=== PATIENT | female | born 1940 | race Caucasian/White ===

== ENCOUNTER 2021-09-29 18:56 | Emergency (ER) | payer MEDICARE, OTHER ==
[~2021-09-29] VITALS: Ht 167.6 cm; Wt 68.2 kg
[2021-09-29 20:09] LABS: BASOPHILS # (AUTO) 0.1 X10'3 (0-0.2); BASOPHILS % (AUTO) 0.8 % (0-1); EOSINOPHILS # (AUTO) 0.3 X10'3 (0-0.9); EOSINOPHILS % (AUTO) 1.9 % (0-6); HEMATOCRIT 42.5 % (35.0-45.0); HEMOGLOBIN 14.2 g/dl (12.0-16.0); LYMPHOCYTES # (AUTO) 2.1 X10'3 (1.1-4.8); LYMPHOCYTES % (AUTO) 11.9 % (21-51); MEAN CORPUSCULAR HEMOGLOBIN 27.9 PG (27.0-31.0); MEAN CORPUSCULAR HGB CONC 33.5 g/dL (33.0-36.5); MEAN CORPUSCULAR VOLUME 83.4 FL (78-98); MEAN PLATELET VOLUME 7.9 FL (7.4-10.4); MONOCYTES # (AUTO) 1.1 X10'3 (0-0.9); MONOCYTES % (AUTO) 6.1 % (2-12); NEUTROPHILS # (AUTO) 13.8 X10'3 (1.8-7.7); NEUTROPHILS % (AUTO) 79.3 % (42-75); PLATELET COUNT 343 X10'3 (140-440); RED CELL DISTRIBUTION WIDTH 14.5 % (11.5-14.5); WHITE BLOOD COUNT 17.4 X10'3 (4.5-11.0)
[2021-09-29 20:29] LABS: ALANINE AMINOTRANSFERASE 27 U/L (12-78); ALBUMIN 3.4 G/DL (3.4-5.0); ALBUMIN/GLOBULIN RATIO 0.7 (1.1-1.5); ALKALINE PHOSPHATASE 114 IU/L (46-116); ANION GAP 8 (8-16); ASPARTATE AMINO TRANSFERASE 34 U/L (10-37); BILIRUBIN,TOTAL 0.6 MG/DL (0.1-1.0); BLOOD UREA NITROGEN 15 MG/DL (7-18); BUN/CREATININE RATIO 15.6 (6.6-38.0); CALCIUM 8.6 MG/DL (8.5-10.1); CHLORIDE 100 MMOL/L (99-107); CREATININE 0.96 MG/DL (0.40-0.90); GLUCOSE 107 MG/DL (70-104); POTASSIUM 3.3 MMOL/L (3.5-5.1); SODIUM 136 MMOL/L (135-145); TOTAL PROTEIN 8.2 G/DL (6.4-8.2); eGFR 56 ML/MIN
[2021-09-29] MEDS ORDERED: MULT-1085 PO (20:31)
[2021-09-29] MEDS ORDERED: METH1TAB29 PO (20:31)
[2021-09-29] MEDS ORDERED: LOSA25TA96 PO (20:31)
[2021-09-29] MEDS ORDERED: CYAN50003 PO (20:31)
[2021-09-29] MEDS ORDERED: CHOL200012 PO (20:31)
[2021-09-29] MEDS ORDERED: PANT40TA54 PO (20:31)
[2021-09-29] MEDS ORDERED: PRAM0.5T3 PO (20:31)
[2021-09-29] MEDS ORDERED: OSC500T PO (20:31)
[2021-09-29] MEDS ORDERED: MELO-102 PO (20:31)
[2021-09-29] MEDS ORDERED: SIMV-42 PO (20:31)
[2021-09-29] MEDS ORDERED: albuterol 2.5 MG/3 ML nebule NEB ONE (21:05)
[2021-09-29] MEDS ORDERED: levoFLOXACIN 250mg tablet PO ONE (21:25)
[2021-09-29] MEDS ORDERED: PRED20TA PO (21:32)
[2021-09-29] MEDS ORDERED: LEVO500T90 PO (21:32)
[2021-09-29] MEDS ORDERED: predniSONE 20 mg tablet PO ONE (21:35)
[2021-09-29 22:13] VITALS: BP 155/70
[2021-09-29] MEDS ORDERED: ALBU18HF2 INH (22:22)
== END 2021-09-29 22:16 | disposition home or self-care (01) ==
LOC: ER 18:57
DX: J18.9 Pneumonia, unspecified organism (principal); Z20.822 Contact with and (suspected) exposure to COVID-19; J44.1 Chronic obstructive pulmonary disease with (acute) exacerbation; R09.89 Other specified symptoms and signs involving the circulatory and respiratory systems; R05.9 Cough, unspecified; R50.9 Fever, unspecified; Z88.1 Allergy status to other antibiotic agents; Z79.2 Long term (current) use of antibiotics; Z79.899 Other long term (current) drug therapy
CPT/HCPCS: 36415; 71045; 80053; 85025; 87502; 87503; 87635; 94640; 99284; C9803; J7512; 94760

== ENCOUNTER 2022-03-24 19:49 | Inpatient (IN) | payer MEDICARE, OTHER ==
[~2022-03-24] VITALS: Ht 167.6 cm; Wt 62.7 kg
[~2022-03-24 19:49] MED LIST: ALBU18HF2 INH; CHOL200012 PO; CYAN50003 PO; LOSA25TA96 PO; MELO-102 PO; METH1TAB29 PO; MULT-1085 PO; OSC500T PO; PANT40TA54 PO; PRAM0.5T3 PO; SIMV-42 PO
[2022-03-24 21:07] LABS: CLARITY,URINE SLIGHTLY CLOUDY (Clear); COLOR,URINE YELLOW (Yellow); GLUCOSE, URINE NEGATIVE (Neg); KETONES,URINE NEGATIVE (Neg); LEUKOCYTE ESTERASE ,URINE MODERATE (Neg); NITRITES, URINE POSITIVE (Neg); OCCULT BLOOD,URINE SMALL (Neg); PROTEIN,URINE 30 mg/dl (Neg); UROBILINOGEN,URINE 0.2 E.U/dL (0.2-1.0)
[2022-03-24 21:11] LABS: UA COLLECTION TYPE CLN CATCH MIDSTREAM
[2022-03-24 21:15] LABS: BACTERIA,URINE 3+ /HPF (Neg); MUCUS STRANDS FEW /LPF (Neg); SQUAMOUS EPITHELIAL CELL,UR FEW /LPF (FEW); WBC,URINE TNTC /HPF (0-4)
[2022-03-24 21:16] LABS: WBC CLUMPS,URINE FEW /HPF (NEGATIVE)
--- NOTE | 2022-03-25 00:01 | NUR ---
CHEST XRAY DONE
[2022-03-25] MEDS ORDERED: CefTRIAXone 1000mg IM Kit (w/lidocaine diluent) IM ONE (00:10)
[2022-03-25] MEDS ORDERED: CefTRIAXone/D5W-Rocephin 1gm 50 ML IV ONE (00:20)
[2022-03-25 00:51] LABS: BASOPHILS # (AUTO) 0.1 X10'3 (0-0.2); BASOPHILS % (AUTO) 0.6 % (0-1); EOSINOPHILS % (AUTO) 0.1 % (0-6); HEMATOCRIT 37.4 % (35.0-45.0); HEMOGLOBIN 12.4 g/dl (12.0-16.0); LYMPHOCYTES # (AUTO) 1.3 X10'3 (1.1-4.8); LYMPHOCYTES % (AUTO) 6.1 % (21-51); MEAN CORPUSCULAR HEMOGLOBIN 28.5 PG (27.0-31.0); MEAN CORPUSCULAR HGB CONC 33.2 g/dL (33.0-36.5); MEAN CORPUSCULAR VOLUME 85.9 FL (78-98); MONOCYTES # (AUTO) 1.7 X10'3 (0-0.9); MONOCYTES % (AUTO) 8.3 % (2-12); NEUTROPHILS # (AUTO) 17.6 X10'3 (1.8-7.7); NEUTROPHILS % (AUTO) 84.9 % (42-75); PLATELET COUNT 253 X10'3 (140-440); RED BLOOD COUNT 4.35 X10'6 (4.20-5.60); RED CELL DISTRIBUTION WIDTH 15.8 % (11.5-14.5); WHITE BLOOD COUNT 20.7 X10'3 (4.5-11.0)
[2022-03-25 01:06] LABS: ALANINE AMINOTRANSFERASE 31 U/L (12-78); ALBUMIN 3.1 G/DL (3.4-5.0); ALBUMIN/GLOBULIN RATIO 0.7 (1.1-1.5); ALKALINE PHOSPHATASE 85 IU/L (46-116); ANION GAP 10 (8-16); ASPARTATE AMINO TRANSFERASE 40 U/L (10-37); BILIRUBIN,TOTAL 0.8 MG/DL (0.1-1.0); BLOOD UREA NITROGEN 24 MG/DL (7-18); BUN/CREATININE RATIO 18.5 (6.6-38.0); CALCIUM 8.3 MG/DL (8.5-10.1); CHLORIDE 101 MMOL/L (99-107); GLUCOSE 134 MG/DL (70-104); MAGNESIUM 2.1 MG/DL (1.5-2.4); POTASSIUM 3.1 MMOL/L (3.5-5.1); SODIUM 135 MMOL/L (135-145); TOTAL CARBON DIOXIDE 24.5 MMOL/L (24-32); TOTAL PROTEIN 7.5 G/DL (6.4-8.2); eGFR 39 ML/MIN
[2022-03-25] MEDS ORDERED: POTASSIUM BICARB 20meq eff tab 20 MEQ TABLET.EFF PO ONE (01:15)
[2022-03-25] MEDS ORDERED: normal saline 1000ML IV soln IVB ONE (01:40)
[2022-03-25] MEDS ORDERED: ondansetron/PF 4mg/2ml inj IV PRN (02:15)
[2022-03-25] MEDS ORDERED: magnesium Cl slow-release 64mg tablet PO PRN (02:15)
[2022-03-25] MEDS ORDERED: acetaminophen 325mg tablet PO PRN ×2 (02:15)
[2022-03-25] MEDS ORDERED: HYDROcodone/acetaminophen 5mg/325mg tablet PO PRN (02:15)
[2022-03-25] MEDS ORDERED: morphine 2 MG/ML inj. syringe IV PRN (02:15)
[2022-03-25] MEDS ORDERED: potassium Cl 20 mEq SR tablet PO PRN (02:15)
[2022-03-25] MEDS ORDERED: potassium Cl 40MEQ/1/2NS 520ml 520 ML IV PRN (02:15)
[2022-03-25] MEDS ORDERED: magnesium 4gm in 100ml NS 100 ML IV PRN (02:15)
[2022-03-25] MEDS ORDERED: ZOLP5TAB8 PO (04:31)
[2022-03-25] MEDS ORDERED: CHOL100046 PO (04:34)
[2022-03-25] MEDS ORDERED: THIA50TA10 PO (04:35)
[2022-03-25] MEDS: normal saline 1000ml 1,000 ML IV SCH ×2 (04:38→15:47)
[2022-03-25] MEDS ORDERED: ASPI-1071 PO (04:39)
[2022-03-25] MEDS ORDERED: pramipexole 0.25mg tablet PO ONE ×2 (04:48→04:52)
[2022-03-25] MEDS: aspirin 81mg, enteric-coated 1 TAB TABLET.DR PO SCH (07:26)
[2022-03-25] MEDS: potassium Cl 20 mEq SR tablet PO PRN (07:26)
[2022-03-25] MEDS: pantoprazole 40mg Tablet.DR PO SCH (07:26)
[2022-03-25] MEDS: heparin, porcine 5000 units/ml vial SQ SCH ×2 (07:27→21:11)
[2022-03-25] MEDS: CefTRIAXone 2gm/D5W 50ml BAG 50 ML IV SCH (07:27)
[2022-03-25] MEDS: losartan 50mg tablet PO SCH (08:15)
--- NOTE | 2022-03-25 19:00 | NUR ---
Patient in room [facility]. I have received report from ANTIONE Curran and had the opportunity to ask questions and assume patient care.
[2022-03-25 19:15] VITALS: BP 151/65
--- NOTE | 2022-03-25 19:15 | NUR ---
pt arrived to floor in wheelchair. settled into bed. oriented to call light. settling in. requested a shower.
[2022-03-25] MEDS ORDERED: temazepam 15mg capsule PO PRN (21:00)
[2022-03-25] MEDS: pramipexole 0.25mg tablet PO SCH (21:10)
[2022-03-25] MEDS: atorvastatin 10mg tablet PO SCH (21:10)
[2022-03-25 22:00] VITALS: BP 156/78
[2022-03-26] MEDS: normal saline 1000ml 1,000 ML IV SCH ×2 (05:47→23:59)
[2022-03-26 06:00] VITALS: BP 147/72
--- NOTE | 2022-03-26 06:20 | NUR ---
Problems reprioritized. Patient report given, questions answered & plan of care reviewed with ANTIONE Mckinney.
[2022-03-26 07:11] LABS: BASOPHILS # (AUTO) 0.1 X10'3 (0-0.2); EOSINOPHILS # (AUTO) 0.2 X10'3 (0-0.9); EOSINOPHILS % (AUTO) 2.4 % (0-6); HEMATOCRIT 31.7 % (35.0-45.0); HEMOGLOBIN 10.7 g/dl (12.0-16.0); LYMPHOCYTES # (AUTO) 1.7 X10'3 (1.1-4.8); LYMPHOCYTES % (AUTO) 22.4 % (21-51); MEAN CORPUSCULAR HEMOGLOBIN 29.1 PG (27.0-31.0); MEAN CORPUSCULAR HGB CONC 33.9 g/dL (33.0-36.5); MEAN PLATELET VOLUME 7.7 FL (7.4-10.4); MONOCYTES # (AUTO) 0.9 X10'3 (0-0.9); MONOCYTES % (AUTO) 11.9 % (2-12); NEUTROPHILS # (AUTO) 4.7 X10'3 (1.8-7.7); NEUTROPHILS % (AUTO) 62.3 % (42-75); PLATELET COUNT 190 X10'3 (140-440); RED BLOOD COUNT 3.68 X10'6 (4.20-5.60); RED CELL DISTRIBUTION WIDTH 15.6 % (11.5-14.5); WHITE BLOOD COUNT 7.5 X10'3 (4.5-11.0)
[2022-03-26 07:14] LABS: ALANINE AMINOTRANSFERASE 27 U/L (12-78); ALBUMIN 2.6 G/DL (3.4-5.0); ALBUMIN/GLOBULIN RATIO 0.6 (1.1-1.5); ALKALINE PHOSPHATASE 67 IU/L (46-116); ANION GAP 8 (8-16); ASPARTATE AMINO TRANSFERASE 48 U/L (10-37); BILIRUBIN,TOTAL 0.4 MG/DL (0.1-1.0); BLOOD UREA NITROGEN 13 MG/DL (7-18); BUN/CREATININE RATIO 17.6 (6.6-38.0); CALCIUM 8.1 MG/DL (8.5-10.1); CHLORIDE 106 MMOL/L (99-107); CREATININE 0.74 MG/DL (0.40-0.90); GLUCOSE 86 MG/DL (70-104); POTASSIUM 3.1 MMOL/L (3.5-5.1); SODIUM 135 MMOL/L (135-145); TOTAL CARBON DIOXIDE 21.4 MMOL/L (24-32); TOTAL PROTEIN 6.7 G/DL (6.4-8.2); eGFR 75 ML/MIN
[2022-03-26] MEDS: pantoprazole 40mg Tablet.DR PO SCH (08:08)
[2022-03-26] MEDS: aspirin 81mg, enteric-coated 1 TAB TABLET.DR PO SCH (08:08)
[2022-03-26] MEDS: heparin, porcine 5000 units/ml vial SQ SCH ×2 (08:09→19:57)
[2022-03-26] MEDS: losartan 50mg tablet PO SCH (08:09)
[2022-03-26] MEDS: CefTRIAXone 2gm/D5W 50ml BAG 50 ML IV SCH (08:10)
[2022-03-26] MEDS: potassium Cl 20 mEq SR tablet PO PRN ×2 (08:27→19:57)
[2022-03-26 10:00] VITALS: BP 137/71
[2022-03-26 18:00] VITALS: BP 168/77
--- NOTE | 2022-03-26 18:10 | NUR ---
Patient in room [facility]. I have received report from ANTIONE Mckinney and had the opportunity to ask questions and assume patient care.
[2022-03-26] MEDS: atorvastatin 10mg tablet PO SCH (19:56)
[2022-03-26] MEDS: pramipexole 0.25mg tablet PO SCH (19:57)
[2022-03-26 22:00] VITALS: BP 165/79
[2022-03-27 06:00] VITALS: BP 161/71
--- NOTE | 2022-03-27 06:36 | NUR ---
Problems reprioritized. Patient report given, questions answered & plan of care reviewed with ANTIONE Mckinney.
[2022-03-27 06:58] LABS: BASOPHILS # (AUTO) 0.1 X10'3 (0-0.2); BASOPHILS % (AUTO) 1.4 % (0-1); EOSINOPHILS # (AUTO) 0.2 X10'3 (0-0.9); EOSINOPHILS % (AUTO) 3.2 % (0-6); HEMOGLOBIN 11.2 g/dl (12.0-16.0); LYMPHOCYTES # (AUTO) 2.2 X10'3 (1.1-4.8); LYMPHOCYTES % (AUTO) 30.4 % (21-51); MEAN CORPUSCULAR HEMOGLOBIN 28.9 PG (27.0-31.0); MEAN CORPUSCULAR HGB CONC 33.8 g/dL (33.0-36.5); MEAN CORPUSCULAR VOLUME 85.4 FL (78-98); MONOCYTES # (AUTO) 0.9 X10'3 (0-0.9); MONOCYTES % (AUTO) 12.4 % (2-12); NEUTROPHILS # (AUTO) 3.8 X10'3 (1.8-7.7); NEUTROPHILS % (AUTO) 52.6 % (42-75); PLATELET COUNT 195 X10'3 (140-440); RED BLOOD COUNT 3.87 X10'6 (4.20-5.60); RED CELL DISTRIBUTION WIDTH 15.5 % (11.5-14.5); WHITE BLOOD COUNT 7.2 X10'3 (4.5-11.0)
[2022-03-27] MEDS: normal saline 1000ml 1,000 ML IV SCH (07:45)
[2022-03-27 07:53] LABS: ALANINE AMINOTRANSFERASE 29 U/L (12-78); ALBUMIN 2.5 G/DL (3.4-5.0); ALBUMIN/GLOBULIN RATIO 0.6 (1.1-1.5); ALKALINE PHOSPHATASE 73 IU/L (46-116); ANION GAP 9 (8-16); ASPARTATE AMINO TRANSFERASE 39 U/L (10-37); BILIRUBIN,TOTAL 0.3 MG/DL (0.1-1.0); BLOOD UREA NITROGEN 7 MG/DL (7-18); BUN/CREATININE RATIO 9.9 (6.6-38.0); CALCIUM 8.1 MG/DL (8.5-10.1); CHLORIDE 106 MMOL/L (99-107); CREATININE 0.71 MG/DL (0.40-0.90); GLUCOSE 114 MG/DL (70-104); POTASSIUM 3.1 MMOL/L (3.5-5.1); SODIUM 140 MMOL/L (135-145); TOTAL CARBON DIOXIDE 24.9 MMOL/L (24-32); TOTAL PROTEIN 6.5 G/DL (6.4-8.2); eGFR 79 ML/MIN
[2022-03-27] MEDS: atorvastatin 10mg tablet PO SCH (09:09)
[2022-03-27] MEDS: CefTRIAXone 2gm/D5W 50ml BAG 50 ML IV SCH (09:09)
[2022-03-27] MEDS: losartan 50mg tablet PO SCH (09:10)
[2022-03-27] MEDS: pantoprazole 40mg Tablet.DR PO SCH (09:10)
[2022-03-27] MEDS: aspirin 81mg, enteric-coated 1 TAB TABLET.DR PO SCH (09:10)
[2022-03-27] MEDS: heparin, porcine 5000 units/ml vial SQ SCH (09:10)
[2022-03-27] MEDS: potassium Cl 20 mEq SR tablet PO PRN (09:16)
[2022-03-27 10:00] VITALS: BP 159/70
[2022-03-27] MEDS ORDERED: LEVO-65 PO (11:39)
[2022-03-27] MEDS ORDERED: POTA-207 PO (11:39)
== END 2022-03-27 13:15 | disposition home or self-care (01) | DRG 871 ==
LOC: ER 19:50 → ED HOLD 03-25 02:16 → SUR 3N 03-25 19:19
PROVIDERS: ADMIT Internal Medicine; ATTEND Internal Medicine
DX: A41.9 Sepsis, unspecified organism (principal); N17.0 Acute kidney failure with tubular necrosis; S22.32XA Fracture of one rib, left side, initial encounter for closed fracture; N39.0 Urinary tract infection, site not specified; Z20.822 Contact with and (suspected) exposure to COVID-19; E87.6 Hypokalemia; G89.29 Other chronic pain; M54.9 Dorsalgia, unspecified; E86.0 Dehydration; Z87.440 Personal history of urinary (tract) infections; Z88.8 Allergy status to other drugs, medicaments and biological substances; Z79.899 Other long term (current) drug therapy; Z79.82 Long term (current) use of aspirin; V89.2XXA Person injured in unspecified motor-vehicle accident, traffic, initial encounter; Y93.89 Activity, other specified; Y92.89 Other specified places as the place of occurrence of the external cause; Y99.8 Other external cause status
CPT/HCPCS: 36415; 71045; 76700; 76856; 80053; 81001; 83605; 83735; 84145; 85025; 87040; 87081; 87088; 87502; 87503; 87635; 97110; 97161; 99285; C9803; G0378; J0696; J1644; J7030